=== PATIENT | female | born 1975 | race Hispanic/Latino ===

== ENCOUNTER 2024-11-15 06:27 | Emergency (ER) | payer SELFPAY ==
[~2024-11-15] VITALS: Ht 160 cm; Wt 70.3 kg
--- NOTE | 2024-11-15 06:53 | ERN ---
General Chief Complaint: Upper Extremity Pain/Injury Stated Complaint: LEFT UPPER EXTREMITY PAIN Time Seen by MD: 06:48 History of Present Illness Initial Comments 49-year-old healthy female comes in with a excruciating left forearm and left hand pain. There was also a very tender soft tissue lump on radial styloid process. Distal circulation is intact, compartments soft, good sensation all fingers. Forearm volar surface extremely tender but soft. Past Medical History Past Medical History: No Pertinent History Medical History Other: CARPEL TUNNEL TO RIGHT WRIST Past Surgical History: None Constitutional: (-) chills, (-) diaphoresis, (-) fever, (-) malaise, (-) weakness, (-) other documentation EENTM: (-) eye pain, (-) blurred vision, (-) tearing, (-) double vision, (-) ear pain, (-) ear discharge, (-) nose pain, (-) nose congestion, (-) throat pain, (-) Throat swelling, (-) mouth pain, (-) tooth pain, (-) mouth swelling, (-) other documentation Respiratory: (-) cough, (-) orthopnea, (-) short of breath, (-) stridor, (-) wheezing, (-) other documentation Cardiovascular: (-) chest pain, (-) edema, (-) palpitations, (-) syncope, (-) dyspnea on exertion, (-) other documentation Gastrointestinal/Abdominal: (-) nausea, (-) vomiting, (-) diarrhea, (-) abdominal pain, (-) abdominal distention, (-) constipation, (-) rectal bleeding, (-) dark stool/melena, (-) other documentation Physical Exam General Appearance comment Teary-eyed from the pain Orientation: (+) alert, (+) oriented x 3 Neurologic/Psychiatric Comment Left forearm compartments are soft however there has pain with passive extension of the patient's digits and she can not extend or flex her hand with a out creating enormous amounts of pain. Radial medial ulnar nerves intact although muscles are weak. Results Laboratory and Microbiology Lab and Micro Result Laboratory Tests Test 11/15/24 06:43 White Blood Count 12.2 K/uL (4.8-10.8) H Red Blood Count 4.64 MIL/uL (4.00-5.50) Hemoglobin 14.1 g/dL (12.0-16.0) Hematocrit 42.1 % (36-48) Mean Corpuscular Volume 90.7 fL (79-99) Mean Corpuscular Hemoglobin 30.4 pg (27.0-33.0) Mean Corpuscular Hemoglobin Concent 33.5 g/dL (32.0-36.0) Red Cell Distribution Width 12.7 % (11.0-15.5) Platelet Count 311 K/uL (130-400) Mean Platelet Volume 11.2 fL (7.5-10.5) H Immature Granulocyte % (Auto) 0.6 % (0-1) Neutrophils (%) (Auto) 59.5 % (40.0-77.0) Lymphocytes (%) (Auto) 28.0 % (21.0-51.0) Monocytes (%) (Auto) 7.0 % (3.0-13.0) Eosinophils (%) (Auto) 3.9 % (0.0-8.0) Basophils (%) (Auto) 1.0 % (0.0-5.0) Neutrophils # (Auto) 7.3 K/uL (1.8-7.7) Lymphocytes # (Auto) 3.4 K/uL (1.0-4.8) Monocytes # (Auto) 0.9 K/uL (0.1-1.0) Eosinophils # (Auto) 0.48 K/uL (0.00-0.70) Basophils # (Auto) 0.12 K/uL (0.00-0.20) Absolute Immature Granulocyte (auto 0.07 K/uL (0-1) Nucleated Red Blood Cells 0.0 % (0.0-0.19) Sodium Level 133 mmol/L (136-145) L Potassium Level 3.7 mmol/L (3.5-5.1) Chloride Level 102 mmol/L (101-111) Carbon Dioxide Level 25 mmol/L (21-32) Blood Urea Nitrogen 11 mg/dL (7-18) Creatinine 0.6 mg/dL (0.5-1.0) Glomerular Filtration Rate Calc 109 mL/min (>90) Random Glucose 97 mg/dL (70-105) Total Calcium 8.5 mg/dL (8.5-10.1) Total Creatine Kinase 92 U/L (21-232) Labs Reviewed?: Yes EKG/XRAY/US/CT/MRI X-RAY Comment [facility] [address] [place] [address] IMAGING REPORT Signed PATIENT: SARAH WEN MR#: [id number] : 1975 SEX: F AGE: 49 LOCATION: ED ORDER 0 STATUS: REG ER REPORT#: [id number] SERVICE 9 REASON: SWELLING AND PAIN TO LEFT WRIST ORDERING PHYSICIAN: CATHLEEN HANKINS MD PROCEDURE: WRST 3V LT - WRIST COMP 3+VWS LT EXAM: CR right Wrist, 3 View. CLINICAL HISTORY: SWELLING AND PAIN TO LEFT WRIST COMPARISON: None provided. FINDINGS: BONES: No acute osseous abnormality. No acute fracture. JOINTS: No dislocation. The carpal bones demonstrate normal alignment. SOFT TISSUES: The soft tissues are unremarkable. IMPRESSION: No acute osseous abnormality. No acute fracture or dislocation. /[place] DICTATED BY: TAMMIE ROSE Jr., MD DATE: 11/15/24899 ELECTRONICALLY SIGNED BY: TAMMIE ROSE Jr., MD DATE: 11/15/2400 IMAGING REPORT Signed PATIENT: SARAH WEN MR#: [id number] : 1975 SEX: F AGE: 49 LOCATION: ED ORDER 0 STATUS: REG [facility] REPORT#: [id number] SERVICE 9 REASON: SWELLING AND PAIN TO LEFT WRIST ORDERING PHYSICIAN: CATHLEEN HANKINS MD PROCEDURE: ELB3VW LT - ELBOW COMP 3+VWS LT EXAM: CR right elbow, 3 View. CLINICAL HISTORY: SWELLING AND PAIN TO LEFT WRIST AND ELBOW COMPARISON: None provided. FINDINGS: BONES: No acute fracture or aggressive appearing osseous lesion. JOINTS: The joint spaces appear within normal limits. No dislocation. No radiographic evidence of a joint effusion. SOFT TISSUES: The soft tissues are unremarkable. IMPRESSION: No acute osseous abnormality. /[place] DICTATED BY: TAMMIE ROSE Jr., MD DATE: 11/15/24900 ELECTRONICALLY SIGNED BY: TAMMIE ROSE Jr., MD DATE: 11/15/24900 MDM While it is possible that this is an exertion injury as patient has been moving a lot of heavy boxes in the last day or two. We must rule out a compartment syndrome. I will order CK provide pain control and start fluid hydration. MDM: Differential diagnosis: Wrist fracture, wrist sprain, wrist strain, Rationale: Tests considered and ordered secondary to shared decision making include: Previous outside records reviewed: Old ER visits. Risk of complication and/or morbidity or mortality of patient management: None Medications-Per medication reconciliation Need for hospitalization: Patient does not meet criteria for hospitalization. Need for emergency major/minor surgery: No Patient is a 49-year-old female coming in complaining of right wrist pain. On physical exam there is tenderness to palpation of the right wrist area laterally. X-ray disclosed a subtle radial cortex change suggestive of a possible buckle fracture. Although the reading of the x-ray did not disclose fracture it was still be calling it a fracture. I advised patient proper follow up with PCP and/or foot specialist for ongoing evaluation and management. Wrist splint with sling we will be provided. ED Course Orders Procedure Category Date Status Time Cbc With Differential LAB 11/15/24 Complete 06:30 Basic Metabolic Panel LAB 11/15/24 Complete 06:30 Wrist Comp 3+Vws Lt RAD 11/15/24 Resulted 06:30 Elbow Comp 3+Vws Lt RAD 11/15/24 Resulted 06:30 Creatine Kinase, Total LAB 11/15/24 Complete 06:53 Vital Signs Date Time Temp Pulse Resp B/P (MAP) Pulse Ox O2 Delivery O2 Flow Rate FiO2 11/15/24 07:47 98.8 83 19 146/80 99 Room Air* 0 21 11/15/24 06:31 99.0 94 18 148/75 99 Room Air 0 DX & DISP Disposition: Discharge Departure Impression: Primary Impression: Buckle fracture of radius Condition: Stable Scripts Diclofenac Sodium (Voltaren Arthritis Pain) 1 % Gel..gram. 4 GM TP BID for 7 Days, #1 TUBE Prov: GEOFFREY FLORES MD 11/15/24 Additional Instructions: FOLLOW-UP WITH PRIMARY CARE PROVIDER IN 1 TO 2 DAYS. TAKE MEDICATIONS DIRECTED HERE IN THE EMERGENCY ROOM. OKAY TO CONTINUE HOME MEDICATIONS UNLESS OTHERWISE DISCUSSED DURING YOUR VISIT IN THE EMERGENCY ROOM TODAY. RETURN TO YOUR NEAREST EMERGENCY ROOM IF SYMPTOMS WORSEN OR IF THERE IS NO IMPROVEMENT. CALL 911 IF YOU NEED IMMEDIATE ASSISTANCE. TAKE TYLENOL [id number] NEEDED AND IF NO CONTRAINDICATIONS ARE PRESENT. INCREASE ORAL HYDRATION. A W OUND CULTURE OR URINE CULTURE WAS ORDERED HERE IN THE EMERGENCY ROOM DEPARTMENT PLEASE FOLLOW-UP WITH PRIMARY CARE PROVIDER AND ADVISE THEM TO GET REPORTS FROM OUR FACILITY. IF YOU HAD ANY MARY ANNE WRAP/SPLINTS THAT WERE APPLIED HERE, PLEASE DO NOT REMOVE THEM UNTIL YOU SEE YOUR PRIMARY CARE OR SPECIALTY. Referrals: Referrals: SELF,REFERRAL (PCP) SYDNEY MICHELLE MD, LUIS A MD Time of Disposition: 08:29 CATHLEEN HANKINS MD Nov 15, 2024 06:53 GEOFFREY FLORES MD Nov 15, 2024 08:30
[2024-11-15 06:59] LABS: IMMATURE GRANULOCYTE ABSOLUTE 0.07 K/uL (0-1); NUCLEATED RED BLOOD CELLS 0.0 % (0.0-0.19); PLATELET COUNT (AUTO) 311 K/uL (130-400); RED BLOOD CELL COUNT(AUTO) 4.64 MIL/uL (4.00-5.50); RED CELL DISTRIBUTION WIDTH 12.7 % (11.0-15.5); WHITE BLOOD COUNT (AUTO) 12.2 K/uL (4.8-10.8)
[2024-11-15 07:05] LABS: CREATININE 0.6 mg/dL (0.5-1.0); GLOMERULAR FILTR. RATE CALC 109.0 mL/min (>90); GLUCOSE,RANDOM 97.0 mg/dL (70-105); SODIUM SERUM 133.0 mmol/L (136-145); UREA NITROGEN, BLOOD 11.0 mg/dL (7-18)
--- NOTE | 2024-11-15 08:01 | HMCIMG ---
EXAM: CR right Wrist, 3 View. CLINICAL HISTORY: SWELLING AND PAIN TO LEFT WRIST COMPARISON: None provided. FINDINGS: BONES: No acute osseous abnormality. No acute fracture. JOINTS: No dislocation. The carpal bones demonstrate normal alignment. SOFT TISSUES: The soft tissues are unremarkable. IMPRESSION: No acute osseous abnormality. No acute fracture or dislocation. /[place]
--- NOTE | 2024-11-15 08:02 | HMCIMG ---
EXAM: CR right elbow, 3 View. CLINICAL HISTORY: SWELLING AND PAIN TO LEFT WRIST AND ELBOW COMPARISON: None provided. FINDINGS: BONES: No acute fracture or aggressive appearing osseous lesion. JOINTS: The joint spaces appear within normal limits. No dislocation. No radiographic evidence of a joint effusion. SOFT TISSUES: The soft tissues are unremarkable. IMPRESSION: No acute osseous abnormality. /[place]
[2024-11-15] MEDS ORDERED: DICL20GE TP (08:30)
--- NOTE | 2024-11-15 08:42 | NUR ---
METAL SPLINT APPLIED TO THE LEFT WRIST AND SLING TO THE LEFT ARM, PATIENT TOLERATED WELL. CAPILLARY REFILL <3, AND RADIAL PULSE PRESENT./[place]
[2024-11-15 08:44] VITALS: BP 151/74; PULSE 83; RESP 19; TEMP 98.5; O2SAT 99
== END 2024-11-15 08:48 | disposition home or self-care (01) ==
LOC: EDH 06:27
DX: S52.522A Torus fracture of lower end of left radius, initial encounter for closed fracture (principal); X58.XXXA Exposure to other specified factors, initial encounter; Y93.89 Activity, other specified; Y92.89 Other specified places as the place of occurrence of the external cause; Y99.8 Other external cause status
CPT/HCPCS: 29125; 36415; 73080; 73110; 80048; 82550; 85025; 99284